=== PATIENT | male | born 1975 | race Caucasian/White ===

== ENCOUNTER 2020-08-18 08:26 | Emergency (ER) | payer OTHER ==
[2020-08-18 08:58] VITALS: BMI 37.5
[2020-08-18] MEDS ORDERED: ACETAMINOPHEN 325 MG TABLET (FP) PO ONE (09:53)
[2020-08-18] MEDS ORDERED: morphine CARPU-JECT 2 MG/1 ML DISP.SYRIN IM ONE (10:55)
[2020-08-18] MEDS ORDERED: ONDANSETRON *ODT* 4 MG TABLET SL ONE (10:56)
[2020-08-18] MEDS ORDERED: ACETAMINOPHEN 325 MG TABLET (FP) ONE (11:22)
[2020-08-18] MEDS ORDERED: morphine SULFATE 4 MG/ML VIAL ONE (11:23)
[2020-08-18] MEDS ORDERED: ONDANSETRON *ODT* 4 MG TABLET ONE (11:23)
[2020-08-18 11:43] LABS: BASO % 0.8 % (0-2.0); EOS % 2.9 % (0-4.5); HEMATOCRIT 40.8 % (35.4-49); HEMOGLOBIN 13.9 GM/dL (11.7-16.9); LYMPH % 23.8 % (8-40); MCH 30.1 pg (25.7-33.7); MCHC 34.1 g/dl (32.0-35.9); MEAN CELL VOLUME 88.3 fl (80-96); MEAN PLT VOLUME 8.6 fl (7.5-11.1); MONO % 7.2 % (3.8-10.2); NEUT % 65.3 % (42.8-82.8); PLATELET COUNT 305 K/MM3 (134-434); RBC 4.62 M/mm3 (4.00-5.60); RDW 13.4 % (11.9-15.9); WHITE BLOOD COUNT 8.6 K/mm3 (4.0-10.0)
[2020-08-18 11:55] LABS: INR 0.87 (0.83-1.09); PROTHROMBIN TIME (PATIENT) 10.6 SEC (9.7-13.0)
[2020-08-18 11:57] LABS: ACTIVATED PTT 28.6 SECONDS (25.2-36.5)
[2020-08-18 12:09] LABS: CHLORIDE 107 mmol/L (98-107); SODIUM 138 mmol/L (136-145)
[2020-08-18 12:11] LABS: ALBUMIN 3.8 g/dl (3.4-5.0); ANION GAP 6 MMOL/L (8-16); BLOOD UREA NITROGEN 16.4 mg/dL (7-18); CALCIUM 8.6 mg/dL (8.5-10.1); CO2 26 mmol/L (21-32); GLUCOSE,RANDOM 115 mg/dL (74-106)
[2020-08-18 12:14] LABS: CREATININE 0.8 mg/dL (0.55-1.3); SGOT/AST 11 U/L (15-37); SGPT/ALT 30 U/L (13-61)
[2020-08-18 12:16] LABS: BILIRUBIN,TOTAL 0.2 mg/dL (0.2-1); TOT PROT 7.5 g/dl (6.4-8.2)
[2020-08-18 12:17] LABS: ALK PHOS 94 U/L (45-117)
[2020-08-18] MEDS ORDERED: KETOROLAC TROMETHAMINE 30 MG/1 ML VIAL IVPUSH ONE (13:45)
[2020-08-18] MEDS ORDERED: KETOROLAC TROMETHAMINE 15 MG/ML VIAL ONE (14:57)
[2020-08-18 15:09] VITALS: BP 141/90; PULSE 68; TEMP 98.6
== END 2020-08-18 17:04 ==
LOC: JER 08:26
PROC: 3E033GC Introduction of Other Therapeutic Substance into Peripheral Vein, Percutaneous Approach (ICD-10-PCS; principal; 2020-08-18)
PROC: 3E023GC Introduction of Other Therapeutic Substance into Muscle, Percutaneous Approach (ICD-10-PCS; principal; 2020-08-18)
DX: M25.512 Pain in left shoulder (principal); M25.552 Pain in left hip; W19.XXXA Unspecified fall, initial encounter
CPT/HCPCS: 36415; 70450-TC; 71045-TC-FY; 72125-TC; 72170-TC-FY; 73030-TC-LT-FY; 73110-TC-LT-FY; 73562-TC-LT-FY; 73610-TC-LT-FY; 73630-TC-LT; 80053; 82550; 84484; 85025; 85610; 85730; 99285-25; Q0162